=== PATIENT | male | born 1940 | race Caucasian/White ===

== ENCOUNTER → 2017-01-19 | Outpatient (CLI) | payer MEDICARE, BC ==
--- NOTE | 2017-01-20 10:23 | RAD ---
Lateral lumbar spine flexion and extension views, 01/19/2017: History: Chronic back pain, spondylosis No previous lumbar radiographs are available for correlative purposes. There is mild disc space narrowing and marginal spurring at multiple levels. There are moderate hypertrophic degenerative changes involving the facet joints. There is approximately 5-6 mm of anterior subluxation of the L3 vertebral body relative to L4 which does not appear to change significantly between flexion and extension. Slight reverse spondylolisthesis at L1-2 and L2-3 is also noted, without definite instability. No fracture is identified on these limited views.
== END | disposition home or self-care (01) ==
LOC: RAD 16:36
PROVIDERS: ATTEND Neurological Surgery
DX: M47.816 Spondylosis without myelopathy or radiculopathy, lumbar region (principal)
CPT/HCPCS: 72120